=== PATIENT | male | born 1975 | race Caucasian/White ===

== ENCOUNTER → 2022-01-31 | Outpatient (CLI) | payer SELFPAY ==
[~2022-01-31] MED LIST: IOPAMIDOL 370 MG/ML 100 ML INFUS..BTL INJ ONE
[2022-01-31 16:50] LABS: CREATININE, SERUM 1.33 mg/dL (0.72-1.25)
== END ==
LOC: CT 15:33
PROVIDERS: ATTEND Family Medicine
DX: R10.30 Lower abdominal pain, unspecified (principal)
CPT/HCPCS: 36415; 74177; 82565; 84520; Q9967